=== PATIENT | male | born 1995 | race Caucasian/White ===

== ENCOUNTER 2022-01-26 02:49 | Emergency (ER) | payer OTHER, BC, SELFPAY ==
[2022-01-26 03:00] VITALS: BP 143/88; PULSE 100; RESP 18; TEMP 37.3; O2SAT 96
[2022-01-26 03:16] LABS: Basophils Absolute Auto 0.1 K/mm3 (0.0-0.1); Basophils Percent Auto 0.6 % (0.2-1.2); Eosinophils Absolute Auto 0.1 K/mm3 (0-0.3); Eosinophils Percent Auto 1.2 % (0-4.4); Hematocrit 53.9 % (42.0-52.0); Hemoglobin 17.4 g/dL (14.0-18.0); Immature Granulocyte Absolute 0.08 K/mm3 (0.00-0.031); Immature Granulocyte Percent A 0.8 % (0-0.5); Lymphocytes Absolute Auto 2.37 K/mm3 (0.9-3.2); Lymphocytes Percent Auto 24.6 % (18.3-44.2); Mean Corpuscular HGB Conc 32.3 g/dl (32-36); Mean Corpuscular Hemoglobin 28.8 pg (26-34); Mean Corpuscular Volume 89.2 fl (80-100); Mean Platelet Volume 10.3 fl (7.4-10.4); Monocytes Absolute Auto 0.6 K/mm3 (0.1-0.6); Monocytes Percent Auto 6.6 % (2.6-8.5); Neutrophils Absolute Auto 6.4 K/mm3 (1.3-6.7); Neutrophils Percent Auto 66.2 % (45.5-73.1); Platelet Count Result 305 k/mm3 (150-375); Red Blood Count 6.04 M/mm3 (4.6-6.20); White Blood Count 9.6 K/mm3 (4.5-10.0)
[2022-01-26 03:18] LABS: Appearance Urine Clear (Clear); Bilirubin Urine Negative (Negative); Blood Urine Negative (Negative); Color Urine Yellow (Yellow); Glucose Urine UA Negative (Negative); Ketones Urine Negative (Negative); Leukocyte Esterase Ur Trace LEU/UL (Negative); Nitrate Urine Negative (Negative); Protein Urine Negative (Negative); Specific Grav Ur <= 1.005 (1.001-1.035); Urobilinogen Urine 0.2 mg/dL (<2.0); pH Urine 5.5 (5.0-9.0)
--- NOTE | 2022-01-26 03:23 | ED.PSYCH ---
HPI - Psych General Chief Complaint: Psychiatric Symptoms <Krystal Storey PA-C - Last Filed: 01/26/22 04:10> Stated Complaint: SI <Krystal Storey PA-C - Last Filed: 01/26/22 04:10> Time Seen by Provider: 01/26/22 02:49 <Krystal Storey PA-C - Last Filed: 01/26/22 04:10> History of Present Illness HPI Narrative: Patient is a 26-year-old male who presents the ED via PD/EMS, with report of suicidal ideation. Patient states he got off work earlier tonight and was texting his girlfriend. He states he made a joke about jumping off [address], a [place] in [place], in an attempt to kill himself. He also made a comment about finding his firearm in his apartment, which the girlfriend had attempted to hide a few days ago. He told his girlfriend that she did not hide the gun well enough. The patient then reports he fell asleep and woke up to police knocking on his door after the girlfriend contacted the police worried. Patient denied any suicidal ideation to the police. He initially denied EMS transportation, but due to PD/girlfriend concerns and access to firearms, he was placed under involuntary status and brought here. Patient is very agitated that he does not have a choice in being here at this time. He continues to deny SI to me. Denies any HI, AVH. He does have a history of anxiety and depression and currently takes Pristiq and BuSpar. He states he was started on these medications last fall after he experienced depression related to a break-up. He states he was pretty severely depressed at that time, but it has not been as bad since. He does state he occasionally misses doses of his medications. <Krystal Storey PA-C - Last Filed: 01/26/22 04:10> Related Data Allergies/Adverse Reactions: Allergies Allergy/AdvReac Type Severity Reaction Status Date / Time Sulfa (Sulfonamide AdvReac Hives Verified 01/26/22 03:17 Antibiotics) <Krystal Storey PA-C - Last Filed: 01/26/22 04:10> Review of Systems Review of Systems: CONSTITUTIONAL: Denies fever, chills. ENT: Denies rhinorrhea, congestion, sore throat. CARDIOVASCULAR: Denies chest pain. RESPIRATORY: Denies dyspnea. GASTROINTESTINAL: Denies abdominal pain, nausea, vomiting, or diarrhea. MUSCULOSKELETAL: Denies back pain. NEUROLOGIC: Denies headache, numbness, or weakness. PSYCHIATRIC: Reports depression. Denies SI, HI, AVH. <Krystal Storey PA-C - Last Filed: 01/26/22 04:10> All systems reviewed & are unremarkable except as noted in HPI and below <Krystal Storey PA-C - Last Filed: 01/26/22 04:10> PMFSH Past Medical History Medical History: Medical History (Updated 01/26/22 @ 05:08 by Samir Ghosh DO) Anxiety Depression <Krystal Storey PA-C - Last Filed: 01/26/22 04:10> Surgical History Surgical History: Surgical History (Updated 01/26/22 @ 03:33 by Krystal Storey PA-C) History of adenoidectomy History of ear surgery <Krystal Storey PA-C - Last Filed: 01/26/22 04:10> Social History Social History: Social History (Updated 01/26/22 @ 03:33 by Krystal Storey PA-C) Smoking status: Never smoker Alcohol intake: current Substance use type: does not use <Krystal Storey PA-C - Last Filed: 01/26/22 04:10> Exam Narrative: GENERAL: Well appearing, well-nourished, non-toxic, in no acute distress. HEAD: Normocephalic, atraumatic. NECK: Supple. No adenopathy, no masses. RESPIRATORY: Airway patent, respirations nonlabored. Clear to auscultation bilaterally, no rales, rhonchi, wheezing. CARDIOVASCULAR: Regular rate and rhythm without murmurs, rubs, or gallops. Peripheral pulses 2+ and equal bilaterally. MUSCULOSKELETAL: Moves all extremities. Strength/ROM intact without gross deformities. SKIN: Warm, dry, normal color. No rashes. NEURO: A&O X3. Speech clear. Cranial nerves II-XII grossly intact. Steady gait. No ataxic movements. PSYCHIATRIC: Slightly agitated, but redirectable. Appropriate mood and affect. N
[2022-01-26 03:25] LABS: Acetaminophen < 10 ug/mL (10-30); Ethanol < 10 mg/dL (<10); Salicylate < 1.0 mg/dL (2-20)
[2022-01-26 03:26] LABS: Alanine Aminotransferase 89 U/L (6-50); Albumin Level 4.6 g/dL (3.5-5.1); Alkaline Phosphatase 77 U/L (38-126); Anion Gap 8 mmol/L (8-16); Aspartate Amino Transferase 51 U/L (17-59); Bilirubin,Total 1.5 mg/dL (0.2-1.3); Blood Urea Nitrogen 18 mg/dL (9-20); Calcium 8.6 mg/dL (8.4-10.2); Carbon Dioxide 30 mmol/L (22-30); Chloride 100 mmol/L (98-107); Estimated CRCL calculation 97 ml/min; Estimated Glomerular Filt Rate > 60; Glucose 108 mg/dL (65-110); Potassium 4.4 mmol/L (3.4-5.0); Sodium 138 mmol/L (137-145)
[2022-01-26 03:32] LABS: Amphetamine Screen Urine Negative (Negative); Barbiturate Screen Urine Negative (Negative); Benzodiazepines Screen Urine Negative (Negative); Cannabinoid Screen Urine Negative (Negative); Cocaine Screen Urine Negative (Negative); Methadone Screen Urine Negative (Negative); Opiate Screen Urine Negative (Negative); Phencyclidine Screen Urine Negative (Negative)
[2022-01-26 03:55] LABS: SARS-CoV-2 RNA PCR Negative
[2022-01-26 03:59] LABS: Bacteria Urine Trace /hpf; Mucus Urine Rare /lpf
[2022-01-26 04:07] LABS: Add Urine Microscopic? YES
--- NOTE | 2022-01-26 06:07 | PC.NURSE ---
This nurse faxed pt chart to [facility] for evaluation via the request of Dori with Crisis.
--- NOTE | 2022-01-26 06:11 | PC.NURSE ---
Pt noted to verbally stating his frustration and stated, I am pissed that you are in infringing on my rights. I am just going to go to that hospital and no one will be believe me when I say I am not suicidal. Pt difficult to deescalate and security called to ensure safety of sitter at this time.
--- NOTE | 2022-01-26 06:16 | PC.NURSE ---
this nurse faxed pt chart to [facility] per there request.
--- NOTE | 2022-01-26 07:15 | PC.NURSE ---
Pt sleeping at this time, sitter at bedside
[2022-01-26] MEDS: LORazepam (*CRX) 1 MG TABLET PO (08:11)
[2022-01-26] MEDS: busPIRone HCL 5 MG TABLET PO (08:12)
[2022-01-26 08:51] VITALS: BP 153/72; PULSE 80; RESP 18; TEMP 36.4; O2SAT 100
--- NOTE | 2022-01-26 11:14 | PC.NURSE ---
Report received from ANNAMARIA Manning. Per report, awaiting bed assignment at [facility].
--- NOTE | 2022-01-26 11:15 | PC.NURSE ---
Pt sleeping on stretcher at present.
--- NOTE | 2022-01-26 12:16 | PC.NURSE ---
Pt up to phone attempting to call his mother and/or grandmother. dining server at [facility] contacted and states will return call to this RN.
--- NOTE | 2022-01-26 12:27 | PC.NURSE ---
Pt awake, offered food tray which he declines. States you're keeping me here illegally. Why can't I just go. I don't know why I can't go. Explained to patient that due to his recent behavior, police were concerned and brought patient here and signed an involuntary hold, which means we cannot let him go until he is evaluated by mental health personnel, and sometimes there is a hold of up to 72 hrs. Process explained that we're awaiting [place] to call back. Pt denies all SI/HI at this time. Reports frustration at no visitors and not being able to get anyone to respond on the phone. Explained that his friend Danna had come by, but that patient was sleeping and she didn't want to disturb him. Requests that she be called now.
--- NOTE | 2022-01-26 12:32 | PC.NURSE ---
Friend Danna called at [phone]. States she will be up to see the patient.
--- NOTE | 2022-01-26 13:05 | PC.NURSE ---
Pt's face sheet and involuntary facesheet faxed per Wendy to [phone] per request charge gang weigher at [facility].
--- NOTE | 2022-01-26 13:33 | PC.NURSE ---
mother of the pt called and stated she was driving here to take her son home, mother was made aware the pt was going to be transferred and mother stated the pt was going to be coming with her home. nurse, charge nurse, and MD notified
--- NOTE | 2022-01-26 15:10 | PC.NURSE ---
Out to speak with mother after getting pt consent to do so. Pt's mother is crying, angry that she is unable to take her son and leave, and angry that he's been here since 0300 without her being notified. Explained that because the patient is an adult and didn't ask us to call, that we don't automatically call and update. Also upset that his girlfriend, who she has never met, was also called. Explained to mother that the patient is an involuntary admission, signed by the police, and that he was evaluated by a mental health specialist and deemed appropriate for involuntary admission. Explained that if the patient becomes further agitated or upset, or if she attempts to take the patient and leave, that the local police will be contacted and the patient returned to the facility. Pt verb understanding. States is going to contact an application development intern. Mother ambulatory to [facility]m 15 to visit with her son.
--- NOTE | 2022-01-26 15:30 | PC.NURSE ---
transfer to [facility] - Direct Admit [place] - Declined [place] - Declined [place] ETA 1800 Trip#[phone]
--- NOTE | 2022-01-26 15:50 | PC.NURSE ---
Pt's mother requesting a HIPPA form. Also requesting to speak with someone higher when told that the ambulance wouldn't be available to transport until approx 1800.
--- NOTE | 2022-01-26 16:02 | PC.NURSE ---
Elmo, Tow Driver, at bedside to speak with patient and mother.
--- NOTE | 2022-01-26 16:30 | PC.NURSE ---
Care Coordination at bedside per request [place] the Accounting Director.
--- NOTE | 2022-01-26 17:18 | PC.NURSE ---
Report to [facility]. Original involuntary petition sent with patient. Pt's belongings removed and given to [employer] staff.
== END 2022-01-26 17:23 ==
PROVIDERS: Physician Assistant; Emergency Provider Emergency Medicine
DX: R45.851 Suicidal ideations (principal); F32.A Depression, unspecified; F41.9 Anxiety disorder, unspecified; Z20.822 Contact with and (suspected) exposure to COVID-19
CPT/HCPCS: 36415; 80053; 80307; 81001; 84443; 85025; 87086; 99285; A9270; C9803; U0003; U0005